=== PATIENT | female | born 1995 | race Caucasian/White ===

== ENCOUNTER 2016-07-25 14:18 | Emergency (ER) | payer BC ==
[~2016-07-25] VITALS: Ht 165.1 cm; Wt 61.1 kg
[2016-07-25 14:42] VITALS: TEMP 36.8; Ht 165.1 cm; Wt 61.1 kg
[2016-07-25] MEDS ORDERED: BCPILLS PO (15:03)
--- NOTE | 2016-07-25 16:33 | EMERGENCY ROOM VISIT NOTE ---
History First contact with patient: 15:21 Chief Complaint: NEEDLE STICK Stated Complaint: NEEDLESTICK History of Present Illness The patient is a 21 year old female who presents to the Emergency Department by private vehicle with her mother for evaluation after a needlestick that was sustained 1 week ago on 07/19 while performing blood glucose checks during a medical mission trip in [place]. She is uncertain of the source patient. She was wearing gloves this occurred. The area immediately bled. She cleansed the area with alcohol and saline. She did not seek evaluation until returning home this week. She reports that her tetanus status is up-to-date. She is up-to- date on her hepatitis B vaccination series. She reports no redness, swelling, discharge, or drainage to the affected area. She rates her current discomfort as a 0/10. She is uncertain of her HIV or hepatitis B status. Review of Systems A complete 10-point Review of Systems was discussed with the patient, with pertinent positives and negatives listed in the History of Present Illness. All remaining Review of Systems questions can be considered negative unless otherwise specified. Social History Smoking Status: Never Smoker Smokeless Tobacco Use: No Alcohol Use: none Drug Use: none Marital Status: single Housing Status: lives with roommate Occupation Status: [employer] student Current/Historical Medications Scheduled Control Pills ( Control Pills), 1 TAB PO QPM Allergies Coded Allergies: No Known Allergies (Unverified , 07/25/16) Physical Exam Vital Signs Date Time Temp Pulse Resp B/P Pulse Ox O2 Delivery O2 Flow Rate FiO2 07/25/16 16:37 71 16 97/62 97 07/25/16 14:42 36.8 77 16 103/69 96 Room Air Pain Rating (0-10): 0 Physical Exam VITALS: Nursing notes reviewed and vitals are stable. GENERAL: 23-year-old female, in no acute distress, well developed, well nourished. SKIN: Warm and dry with good turgor. No abrasions. There is a solitary puncture beto present at the LEFT second digit. Bleeding is controlled. No edema. Capillary refill is 2+. MUSCULOSKELETAL: Patient has full active range of motion of the LEFT second digit. Normal strength. NEURO: Gross sensation is intact across the LEFT second digit. Medical Decision & Procedures Laboratory Results Test 07/25/16 16:19 Hepatitis B Surface Antibody NEG Hepatitis C Antibody NEG (NEG) HIV (1&2) Ab and P24 Ag, 4th Gener NEG (NEG) ED Course Patient was seen and evaluated by myself. I had a lengthy discussion with the patient regarding injury management. I did speak with Dr. Rogelio Beth from the [facility]. He suggests rapid HIV as well as hepatitis B surface antigen and hepatitis C surface antibody testing. In addition, he suggested repeat HIV testing in 6 weeks as well as for months. He suggests hepatitis C testing to be repeated at 6 months. He does suggest that a hepatitis C rapid or and they could be performed at approximately 3 weeks as well as felt necessary. This information was relayed to the patient who acknowledges understanding. She contents to HIV testing. Labs were drawn, patient was educated on following up with her primary care provider from today's visit. She was educated on worrisome symptoms for return visit to the emergency department. Patient discharged home in good condition. Medical Decision Given the patient's presentation and stated complaint, I did elect to perform the above-mentioned workup. The patient presents today after a needle stick that was obtained week ago. She has no significant exam findings today. Her exam is otherwise unremarkable. She is up-to-date on tetanus as well as hepatitis B. It was suggested to have HIV as well as hepatitis B and C antigens performed today as well as subsequent follow-up testing as described. The patient as well as of the window for post exposure prophylaxis. She declines this anyway. She consents to testing. She'll follow-up with her primary care provider for continued management. She'll return for changing/ worsening symptoms. Patient discharged home in good condition. In the evaluation and treatment of this patient, the following differential diagnoses were considered: HIV, hepatitis, cellulitis, dermatitis, amongst others. Impression Primary Impression: Needle stick injury of finger Departure Information Dispostion Home / Self-Care Condition GOOD Referrals Qing Rebolledo D.O. (PCP) Patient Instructions My [facility] Additional Instructions You've been seen in the emergency department today for your needlestick injury. Please follow-up for repeat HIV testing in 6 weeks as well as 4 months with your primary care provider. Please follow-up for repeat hepatitis C testing in 6 months. You may also have hepatitis C RNA test that 3 weeks if felt necessary by her primary care provider. Return for any changing or worsening symptoms. Problem Qualifiers Primary Impression: Needle stick injury of finger Encounter type: initial encounter Qualified Codes: S61.239A - Puncture wound without foreign body of unspecified finger without damage to nail, initial encounter; W27.3XXA - Contact with needle (sewing), initial encounter
[2016-07-25 16:37] VITALS: BP 97/62; PULSE 71; O2SAT 97
[2016-07-25 17:16] LABS: HEPATITIS B AB NEG
== END 2016-07-25 16:38 | disposition home or self-care (01) ==
LOC: C.EDB 14:20 → C.EDD 16:38
DX: S60.941A Unspecified superficial injury of left index finger, initial encounter (principal); W46.0XXA Contact with hypodermic needle, initial encounter; Y92.89 Other specified places as the place of occurrence of the external cause